=== PATIENT | female | born 1945 | race Caucasian/White ===

== ENCOUNTER → 2016-06-16 | Outpatient (CLI) | payer MEDICARE ==
--- NOTE | ~2016-06-16 | PUL ---
PATIENT'S NAME: ELIZA GUSMAN [facility] AGE: 70 Y [address] ROOM: [place] [id number] LOCATION: [facility] ADMIT DATE: 06/16/2016 Pulmonary DISCHARGE DATE: FAMILY PHYSICIAN: Veronica Coker PA-C ATTENDING PHYSICIAN: STALIN DEL RIO NAME OF PROCEDURE: Pulmonary Function Test DATE OF PROCEDURE: June 16, 2016 TECH: ATripe, GATHERING MACHINE SETTER REASON FOR EXAM: COPD RESULTS: 1. FVC was 1.35 liters which is 48% of predicted and low, FEV1 was 0.52 liters which is 25% of predicted and low, and FEV1/FVC was 39% and low. The flow volume curve revealed significant airflow limitation. After bronchodilator administration FVC increased to 1.85 liters which is a 37% increase and FEV1 increased to 0.6 liters which is a 14% increase. FEV1/FVC was 32%. 2. DLCO and adjusted DLCO were 7 which is 42% of predicted and low. 3. Total lung capacity was 6.3 liters which is 142% of predicted and high, and residual volume was 4.7 liters which is 269% of predicted and high. 4. PH was 7.42, PCO2 was 42, PO2 was 82 while on supplemental oxygen at 2 liters/minute. The base excess was within normal limits at 2.4. PHYSICIAN INTERPRETATION: The patient has very severe airflow limitation with a significant bronchodilator response. Her diffusion capacity is moderately low. There is evidence of significant hyperinflation and air trapping. She has no metabolic abnormalities and no hypoxia at rest while on supplemental oxygen at 2 liters/minute. MD HOWIE DOUGLAS/trixie /[id number] dtt: 06/18/16 1337 , STALIN DEL RIO dtd: 06/17/16 1528
--- NOTE | ~2016-06-16 | PUL ---
PATIENT'S NAME: ELIZA GUSMAN [facility] AGE: 70 Y [address] ROOM: [place] [address] LOCATION: [facility] ADMIT DATE: 06/16/2016 Pulmonary DISCHARGE DATE: FAMILY PHYSICIAN: Veronica Coker PA-C ATTENDING PHYSICIAN: STALIN DEL RIO NAME OF PROCEDURE: Six Minute Walk Test DATE OF PROCEDURE: June 16, 2016 TECH: ATripe, UNIT ASSISTANT REASON FOR EXAM: COPD RESULTS: The patient walked for 575 feet at a pace of 1.09 miles/hour. She had two periods of rest. Her oxygen saturation at the beginning of the test was 95% on 2 liters/minutes, then dropped during the test to 91% while on 2 liters/minute, and was 96% after the test while on 2 liters/minute of oxygen. Her perceived dyspnea was 6/10 on the Yung scale. She had appropriate increases in her heart rate and blood pressure. PHYSICIAN INTERPRETATION: The patient has moderate limitation in her exercise capacity with significant desaturations but no hypoxia during exercise while on supplemental oxygen at 2 liters/minute. MD HOWIE DOUGLAS/trixie /[id number] dtt: 06/18/16 1342 QUANG RADU F dtd: 06/17/16 1537
[2016-06-16 10:50] LABS: BICARBONATE 27.2 mmol/L (18.0-23.0); PCO2 42 mmHg (35-45); PO2 82 mmHg (80-90)
== END | disposition disaster alternative care site (69) ==
LOC: GRAD 10:00
PROVIDERS: Internal Medicine Critical Care Medicine
DX: J44.9 Chronic obstructive pulmonary disease, unspecified (principal); R91.8 Other nonspecific abnormal finding of lung field; J98.4 Other disorders of lung; J98.09 Other diseases of bronchus, not elsewhere classified; I70.90 Unspecified atherosclerosis